=== PATIENT | female | born 1980 | race African-American/Black ===

== ENCOUNTER 2019-05-10 14:11 | Emergency (ER) | payer SELFPAY ==
--- NOTE | 2019-05-10 14:42 | ER Document Report ---
ED Medical Screen (RME) - General Stated Complaint: ABNORMAL LABS Time Seen by Provider: 05/10/19 14:37 Primary Care Provider: PAUL SALCIDO [Primary Care Provider] - Follow up as needed Information source: Patient Notes: Patient states that she had outpatient labs done today and that her hemoglobin was low. Her primary doctor advised her to come here for further evaluation. Patient states that her hemoglobin is 7. Patient reports heavy periods. Patient states that her current cycle has been over 2 months and that she has heavy bleeding with occasional clots. Patient does complain of feeling fati gued. Patient denies any chest pain lightheadedness or dizziness. I have greeted and performed a rapid initial assessment of this patient. A comprehensive ED assessment and evaluation of the patient, analysis of test results and completion of the medical decision making process will be conducted by additional ED providers. TRAVEL OUTSIDE OF THE [place] IN LAST 30 DAYS: No - Related Data Allergies/Adverse Reactions: No Known Allergies Allergy (Unverified 05/10/19 14:36) Physical Exam - General General appearance: Appears well, Alert In distress: None Doctor's Discharge - Discharge Referrals: PAUL SALCIDO [Primary Care Provider] - Follow up as needed
[2019-05-10 15:24] LABS: ABSOLUTE EOSINOPHILS # (AUTO) 0.1 10^3/uL (0.0-0.6); ABSOLUTE LYMPHOCYTES (AUTO) 1.3 10^3/uL (0.5-4.7); ABSOLUTE MONOCYTES (AUTO) 0.4 10^3/uL (0.1-1.4); ABSOLUTE NEUT (AUTO) 5.2 10^3/uL (1.7-8.2); BASOPHILS % (AUTO) 0.3 % (0-2); EOSINOPHILS % (AUTO) 1.8 % (0-6); HEMATOCRIT 25.4 % (36.0-47.0); LYMPHOCYTES % (AUTO) 18.7 % (13-45); MEAN CORPUSCULAR HGB CONC 28.6 g/dL (32.0-36.0); MEAN CORPUSCULAR VOLUME 60 fl (80-97); MONOCYTES % (AUTO) 5.6 % (3-13); PLATELET COUNT 452 10^3/uL (150-450); RED BLOOD COUNT 4.27 10^6/uL (3.72-5.28); RED CELL DISTRIBUTION WIDTH 21.1 % (11.5-14.0); SEGMENTED NEUTROPHILS % (AUTO) 73.6 % (42-78); TOTAL CELLS COUNTED % (AUTO) 100 %; WHITE BLOOD COUNT 7.1 10^3/uL (4.0-10.5)
[2019-05-10 15:35] LABS: ANION GAP 10 (5-19); BLOOD UREA NITROGEN 13 mg/dL (7-20); CALCIUM 9.2 mg/dL (8.4-10.2); CARBON DIOXIDE 28 mmol/L (22-30); CHLORIDE 100 mmol/L (98-107); GLUCOSE 89 mg/dL (75-110); POTASSIUM 4.6 mmol/L (3.6-5.0)
--- NOTE | 2019-05-10 15:57 | ER Document Report ---
ED General - General Chief Complaint: Abnormal Lab Results Stated Complaint: ABNORMAL LABS Time Seen by Provider: 05/10/19 14:37 Primary Care Provider: [facility] [NO LOCAL MD] - Follow up as needed Notes: 38-year-old woman presents to the emergency department history of seen by a physician recently labs were drawn she was contacted and told to come to the emergency department because of a low hemoglobin. The patient notes that she has had heavy menstrual bleeding since her teenage years had been on control pills at one point presently denies symptoms related to the anemia. She denies dizziness, lightheadedness, shortness of breath or chest pain. States that she would not of come to the hospital if she had not been contacted by the physician's office. TRAVEL OUTSIDE OF THE [place] IN LAST 30 DAYS: No - Related Data Allergies/Adverse Reactions: No Known Allergies Allergy (Unverified 05/10/19 14:36) Home Medications: HCTZ Past Medical History - General Information source: Patient - Social History Smoking Status: Current Every Day Smoker Chew tobacco use (# tins/day): No Frequency of alcohol use: Occasional Drug Abuse: None Family History: Reviewed & Not Pertinent Patient has suicidal ideation: No Patient has homicidal ideation: No Review of Systems - Review of Systems Notes: Constitutional: Negative for fever. HENT: Negative for sore throat. Eyes: Negative for visual changes. Cardiovascular: Negative for chest pain. Respiratory: Negative for shortness of breath. Gastrointestinal: Negative for abdominal pain, vomiting or diarrhea. Genitourinary: Negative for dysuria. Musculoskeletal: Negative for back pain. Skin: Negative for rash. Neurological: Negative for headaches, weakness or numbness. 10 point ROS negative except as marked above and in HPI. Physical Exam - Vital signs Vitals: Temp Pulse Resp BP Pulse Ox 99.1 F 113 H 20 165/94 H 99 05/10/19 14:25 05/10/19 14:25 05/10/19 14:25 05/10/19 14:25 05/10/19 14:25 - Notes Notes: PHYSICAL EXAMINATION: Physical Exam: General: Well-nourished well-developed overweight female in no acute distress HEENT: NC/AT, pupils equal round and reactive to light, MM moist,nares clear, oropharynx clear Neck: supple, no adenopathy, no masses. Lungs: clear, no wheezing, no rales no rhonchi CVS: Regular rate and rhythm no murmur gallop or rub Abdomen: Soft, active, nontender, no masses, no hepatosplenomegaly Ext: No edema clubbing or cyanosis. Neuro: Alert and responsive, moving all 4 extremities on command, cranial nerves intact. Skin: Intact no open lesions, no rash PSYCH: Normal mood, normal affect. Course - Re-evaluation Re-evalutation: 05/10/19 16:36 Patient presents to the emergency department with a asymptomatic anemia, hemoglobin 7.3, I talked to the patient and explained that this could have been chronic however, is low enough that she has little or no reserve. She states she is not bleeding at this time and would prefer not to be transfused with blood. Initial vital signs revealed a tachycardia. I have asked for orthostatic blood pressures I have explained to the patient if her blood pressure is unstable or if she continues with a resting tachycardia it would be reasonable to be treated. If she continues refuses I will place her on iron and folate and have her follow-up as an outpatient with her primary physician. 05/10/19 17:04 Orthostatic blood pressures were performed the patient does not drop her blood pressure and her heart rate is below 100. She will be discharged to follow-up as an outpatient. I have is suggested to her that she get a repeat CBC and reticulocyte count in 2 weeks. She can return to the emergency department if she becomes symptomatic in any way. The patient is in agreement with this plan. - Vital Signs Vital signs: Temp Pulse Resp BP Pulse Ox 98.6 F 93 18 136/79 H 100 05/10/19 17:10 05/10/19 16:55 05/10/19 17:10 05/10/19 16:55 05/10/19 17:10 - Laboratory Result Diagrams: 05/10/19 14:37 05/10/19 14:37 Laboratory results interpreted by me: 05/10/19 14:37 Hgb 7.3 L Hct 25.4 L MCV 60 L MCH 17.0 L MCHC 28.6 L RDW 21.1 H Plt Count 452 H I have reviewed laboratory data and used this information for the treatment decisions regarding the patient. Discharge - Discharge Clinical Impression: Iron deficiency anemia Qualifiers: Iron deficiency anemia type: unspecified iron deficiency Qualified Code(s): D50.9 - Iron deficiency anemia, unspecified Condition: Good Disposition: HOME, SELF-CARE Instructions: Anemia, Iron Deficiency ([facility]) Additional Instructions: You are diagnosed with an iron deficiency anemia, likely due to your heavy menstrual bleeding. Given that you are asymptomatic and do not want a transfusion, we will start you on iron and folate today. I suggest that you follow-up with your doctor on Sunday and in approximately 2 weeks a repeat CBC and reticulocyte count be performed. If you become symptomatic dizziness, shortness of breath, chest discomfort please return to the emergency department with the expectation that a blood transfusion would be the likely outcome. Prescriptions: Folic Acid 1 mg PO DAILY #60 tablet Ferrous Gluconate [Iron] 256 mg PO BID #100 tablet Referrals: [facility] [NO LOCAL MD] - Follow up as needed
--- NOTE | 2019-05-10 15:57 | RADIOLOGY REPORT (SQ) ---
EXAM DESCRIPTION: U/S NON OB PEL TV W/DOPPLER COMPLETED DATE/TIME: 05/10/2019 3:41 pm REASON FOR STUDY: vag bleeding COMPARISON: None. TECHNIQUE: Dynamic and static grayscale images acquired of the pelvis via transvaginal approach and recorded on PACS. Additional selected color Doppler and spectral images recorded. LIMITATIONS: Body habitus-bowel gas. FINDINGS: UTERUS: Contour normal. No mass. ENDOMETRIAL STRIPE: 5 mm cystic structure in the upper endometrium. CERVIX: Multiple nabothian cysts, largest 1.4 cm in greatest dimension. RIGHT OVARY AND DOPPLER: Normal size. No worrisome masses. Normal arterial vascular flow without evid ence for torsion. LEFT OVARY AND DOPPLER: Normal size. No worrisome masses. Doppler Flow to the left ovary is difficul t to obtain due to ovarian position. FREE FLUID: None noted. OTHER: No other significant finding. MEASUREMENTS: UTERUS: 6.7 x 4.2 x 3.6 cm ENDOMETRIAL STRIPE: 1.2 cm RIGHT OVARY: 4.9 x 2.7 x 3.1 cm LEFT OVARY: 2.5 x 2.4 x 1.8 cm IMPRESSION: 5 mm cystic structure in the upper endometrium, nonspecific. Correlate with s tatus. Doppler Flow to the left ovary is difficult to obtain due to ovarian position. TECHNICAL DOCUMENTATION: JOB ID: [id number] [id number] 2010 [employer]- All Rights Reserved Rev-08/17 Reading location - IP/workstation name: [facility]
[2019-05-10 15:58] LABS: HYPOCHROMASIA 3+; POLYCHROMASIA SLIGHT
[2019-05-10 15:59] LABS: ANISOCYTOSIS 3+; OVALOCYTES 1+; PLATELET COMMENT ADEQUATE; PLATELET LARGE PRESENT; POIKILOCYTOSIS 1+
[2019-05-10 16:00] LABS: HEMOGLOBIN 7.3 g/dL (12.0-15.5)
[2019-05-10 16:57] VITALS: BP 143/87
== END 2019-05-10 17:15 | disposition home or self-care (01) ==
LOC: ER 14:11
DX: D50.9 Iron deficiency anemia, unspecified (principal); R79.89 Other specified abnormal findings of blood chemistry; F17.200 Nicotine dependence, unspecified, uncomplicated
CPT/HCPCS: 36415; 76830; 80048; 84703; 86850; 86900; 86901; 93976; 99284

== ENCOUNTER → 2019-05-10 | Outpatient (CLI) | payer SELFPAY ==
[2019-05-10 11:02] LABS: ABSOLUTE EOSINOPHILS # (AUTO) 0.1 10^3/uL (0.0-0.6); ABSOLUTE LYMPHOCYTES (AUTO) 1.3 10^3/uL (0.5-4.7); ABSOLUTE MONOCYTES (AUTO) 0.2 10^3/uL (0.1-1.4); ABSOLUTE NEUT (AUTO) 4.5 10^3/uL (1.7-8.2); BASOPHILS % (AUTO) 0.5 % (0-2); CHOLESTEROL 159.93 mg/dL (0-200); EOSINOPHILS % (AUTO) 1.9 % (0-6); IRON(TIBC) 24.1 ug/dL (37-170); LYMPHOCYTES % (AUTO) 21.3 % (13-45); MEAN CORPUSCULAR HEMOGLOBIN 16.9 pg (27.0-33.4); MEAN CORPUSCULAR HGB CONC 28.6 g/dL (32.0-36.0); MONOCYTES % (AUTO) 3.6 % (3-13); PLATELET COUNT 456 10^3/uL (150-450); RED BLOOD COUNT 4.39 10^6/uL (3.72-5.28); RED CELL DISTRIBUTION WIDTH 20.4 % (11.5-14.0); SEGMENTED NEUTROPHILS % (AUTO) 72.7 % (42-78); TOTAL CELLS COUNTED % (AUTO) 100 %; TRIGLYCERIDES 73 mg/dL (<150); WHITE BLOOD COUNT 6.1 10^3/uL (4.0-10.5)
[2019-05-10 11:22] LABS: DIRECT LDL 112 mg/dL (<100)
[2019-05-10 11:33] LABS: HEMOGLOBIN 7.4 g/dL (12.0-15.5)
[2019-05-10 11:34] LABS: ANISOCYTOSIS 2+; HYPOCHROMASIA 4+; OVALOCYTES 1+; PLATELET CLUMPS PRESENT; PLATELET COMMENT ADEQUATE; POIKILOCYTOSIS 1+; TEAR DROP CELLS SLIGHT
[2019-05-10 11:35] LABS: MEAN CORPUSCULAR VOLUME 59 fl (80-97)
[2019-05-12 10:01] LABS: PATH REVIEW PATHOLOGIST REVIEWED
[2019-05-12 13:36] LABS: HEPATITIS C VIRUS AB <0.1 s/co ratio (0.0-0.9)
== END ==
LOC: CCC 09:22
DX: D50.9 Iron deficiency anemia, unspecified (principal); I10 Essential (primary) hypertension
CPT/HCPCS: 36415; 80061; 82306; 83036; 83540; 83550; 84443; 85025; 86701; 86803; 86804

== ENCOUNTER → 2019-05-20 | Outpatient (CLI) | payer OTHER ==
[2019-05-20 16:43] LABS: ABSOLUTE EOSINOPHILS # (AUTO) 0.1 10^3/uL (0.0-0.6); ABSOLUTE LYMPHOCYTES (AUTO) 1.2 10^3/uL (0.5-4.7); ABSOLUTE MONOCYTES (AUTO) 0.3 10^3/uL (0.1-1.4); ABSOLUTE NEUT (AUTO) 6.6 10^3/uL (1.7-8.2); ABSOLUTE RETICS # 0.244 10^6/uL (0.028-0.122); BASOPHILS % (AUTO) 0.3 % (0-2); EOSINOPHILS % (AUTO) 1.3 % (0-6); HEMOGLOBIN 8.1 g/dL (12.0-15.5); LYMPHOCYTES % (AUTO) 14.7 % (13-45); MEAN CORPUSCULAR HEMOGLOBIN 18.6 pg (27.0-33.4); MEAN CORPUSCULAR HGB CONC 28.8 g/dL (32.0-36.0); MONOCYTES % (AUTO) 4.2 % (3-13); PLATELET COUNT 422 10^3/uL (150-450); RED BLOOD COUNT 4.34 10^6/uL (3.72-5.28); RED CELL DISTRIBUTION WIDTH 28.1 % (11.5-14.0); RETICULOCYTE COUNT (AUTO) 5.62 % (0.66-2.85); SEGMENTED NEUTROPHILS % (AUTO) 79.5 % (42-78); TOTAL CELLS COUNTED % (AUTO) 100 %; WHITE BLOOD COUNT 8.3 10^3/uL (4.0-10.5)
[2019-05-20 17:33] LABS: MEAN CORPUSCULAR VOLUME 65 fl (80-97)
[2019-05-20 17:34] LABS: ANISOCYTOSIS 3+; HYPOCHROMASIA 1+; OVALOCYTES 1+; POIKILOCYTOSIS 1+; POLYCHROMASIA SLIGHT; STOMATOCYTES SLIGHT; TEAR DROP CELLS SLIGHT
[2019-05-20 17:35] LABS: PLATELET COMMENT ADEQUATE
== END ==
LOC: OD 12:12
DX: D64.9 Anemia, unspecified (principal)
CPT/HCPCS: 36415; 82728; 83036; 84443; 85025; 85045